=== PATIENT | female | born 1950 | race Two or more races ===

== ENCOUNTER 2022-11-22 11:45 | Inpatient (IN) | payer OTHER ==
[~2022-11-22] VITALS: Ht 160 cm; Wt 54.4 kg
[2022-11-22] MEDS ORDERED: MILLIPRED5 MG PO (14:56)
[2022-11-22] MEDS ORDERED: CYMBALTA20 MG PO (14:57)
[2022-11-22] MEDS ORDERED: HYDROCHLOROTHIA25 MG PO (14:57)
[2022-11-22] MEDS ORDERED: PERCOCET 10-321 EACH PO (14:57)
[2022-11-22] MEDS ORDERED: MULTIPLE VITAM1 EAC2 PO (14:58)
[2022-11-22] MEDS ORDERED: XANAX0.25 MG PO (14:58)
[2022-11-23] MEDS ORDERED: LISINOPRIL20 MG (13:07)
[2022-11-23] MEDS ORDERED: OXYC1TAB9 (13:07)
[2022-11-23] MEDS ORDERED: PROLIA60 MG/1 ML (13:07)
[2022-11-23] MEDS ORDERED: DULOXETINE HCL30 MG (13:07)
[2022-11-23] MEDS ORDERED: METOPROLOL SUCC50 MG (13:07)
[2022-11-23] MEDS ORDERED: ALENDRONATE SOD70 MG (13:07)
[2022-11-23] MEDS ORDERED: ALPRAZOLAM2 MG (13:07)
[2022-11-23] MEDS ORDERED: PREDNISONE2.5 MG (13:07)
[2022-11-24] MEDS ORDERED: ELIQUIS2.5 MG PO (08:31)
[2022-11-24] MEDS ORDERED: DUI500 PO (08:31)
[2022-11-24] MEDS ORDERED: PERCOCET 5-3251 EACH PO (08:31)
== END 2022-11-25 19:52 | DRG 470 ==
LOC: O/R 11-23 05:49 → SURH 11-23 05:49 → SURG 11-23 11:45 → SURH 11-23 17:30
PROVIDERS: ADMIT Orthopaedic Surgery; ATTEND Orthopaedic Surgery
PROC: 0SRC0J9 Replacement of Right Knee Joint with Synthetic Substitute, Cemented, Open Approach (ICD-10-PCS; principal; 2022-11-23 15:15)
DX: M17.11 Unilateral primary osteoarthritis, right knee (principal); D62 Acute posthemorrhagic anemia; I10 Essential (primary) hypertension

== ENCOUNTER 2022-12-10 05:04 | Emergency (ER) | payer OTHER ==
[~2022-12-10] VITALS: Ht 160 cm; Wt 47.2 kg
[~2022-12-10 05:04] MED LIST: ALENDRONATE SOD70 MG; ALPRAZOLAM2 MG; CYMBALTA20 MG PO; DUI500 PO; DULOXETINE HCL30 MG; ELIQUIS2.5 MG PO; HYDROCHLOROTHIA25 MG PO; LISINOPRIL20 MG; METOPROLOL SUCC50 MG; MILLIPRED5 MG PO; MULTIPLE VITAM1 EAC2 PO; OXYC1TAB9; PERCOCET 10-321 EACH PO; PERCOCET 5-3251 EACH PO; PREDNISONE2.5 MG; PROLIA60 MG/1 ML; XANAX0.25 MG PO
[2022-12-10] MEDS ORDERED: PERCOCET 5-3251 EACH PO (07:16)
== END 2022-12-10 07:50 ==
LOC: ER 05:04
DX: M51.36 Other intervertebral disc degeneration, lumbar region (principal); M25.561 Pain in right knee; I10 Essential (primary) hypertension; Z96.651 Presence of right artificial knee joint
CPT/HCPCS: 72100; 73560; 96372; 99284; J3490

== ENCOUNTER 2024-05-31 08:45 | Inpatient (IN) | payer OTHER ==
[~2024-05-31] VITALS: Ht 152.4 cm; Wt 52.2 kg
[2024-05-31 09:22] VITALS: BP 161/89
[2024-05-31 09:28] VITALS: BP 140/81
[2024-05-31 13:34] LABS: RH POSITIVE
[2024-06-05] MEDS ORDERED: TRANEXAMIC ACID 100MG/1ML (1000MG) AMPUL IV ONE ×2 (14:45)
[2024-06-05] MEDS ORDERED: CEFAZOLIN SODIUM 1,000 MG VIAL IV ONE (14:45)
[2024-06-05] MEDS ORDERED: POVIDONE-IODINE 118 ML BOTT TOP ONE (15:00)
[2024-06-05] MEDS ORDERED: VANCOMYCIN HCL 1,000 MG VIAL IR ONE (15:00)
[2024-06-05] MEDS ORDERED: MORPHINE SULFATE 4 MG/ML CARTRIDGE IV ONE (16:00)
[2024-06-05] MEDS ORDERED: LIDOCAINE HCL 1%/EPINEPHRINE 20ML VIAL IJ ONE (16:00)
[2024-06-05] MEDS ORDERED: BUPIVACAINE HCL 30 ML VIAL IJ ONE (16:00)
[2024-06-05] MEDS ORDERED: OxyCODONE HCL 5 MG TABLET (ROXICODONE) PO PRN (16:45)
[2024-06-05] MEDS ORDERED: ONDANSETRON HCL 2 MG/ML VIAL IV PRN (16:45)
[2024-06-05] MEDS ORDERED: MORPHINE SULFATE 4 MG/ML CARTRIDGE IV PRN (16:45)
[2024-06-05] MEDS ORDERED: SODIUM CHLORIDE 0.45 % 1,000 ML IV SCH (16:45)
[2024-06-05] MEDS ORDERED: CEFAZOLIN SODIUM 1,000 MG VIAL IV SCH (17:00)
[2024-06-05] MEDS ORDERED: GABAPENTIN 300 MG CAPSULE PO SCH (17:00)
[2024-06-05] MEDS ORDERED: ENALAPRILAT DIHYDRATE 1.25 MG/ML VIAL IV ONE ×3 (17:15→18:00)
[2024-06-05] MEDS ORDERED: SUGAMMADEX SODIUM 200 MG/2 ML VIAL IV ONE (17:15)
[2024-06-05] MEDS ORDERED: ACETAMINOPHEN 500 MG GEL..CAP PO SCH (18:00)
[2024-06-05 21:07] VITALS: BP 161/89; O2SAT 96
[2024-06-06 00:10] VITALS: BP 138/83; O2SAT 98
[2024-06-06] MEDS ORDERED: DUI500 PO (07:59)
[2024-06-06] MEDS ORDERED: PERCOCET 5-3251 EACH PO (07:59)
[2024-06-06 08:00] VITALS: BP 159/88; O2SAT 98
[2024-06-06 08:22] LABS: HEMATOCRIT 35.6 % (36.0-45.00); HEMOGLOBIN 12.2 g/dL (12.0-15.00); MEAN CELL VOLUME 95.2 fL (80.00-100.00); MEAN CORPUSCULAR HEMOGLOBIN 32.6 pg (27.00-32.0); MEAN CORPUSCULAR HGB CONC 34.2 g/dl (32.0-36.0); RED BLOOD COUNT 3.74 M/uL (4.00-6.00); RED CELL DISTRIBUTION WIDTH 12.9 % (11.5-14.5)
[2024-06-06 08:28] LABS: PLATELET COUNT 130 K/uL (150-450)
[2024-06-06] MEDS ORDERED: SENNOSIDES 1 TAB TABLET PO SCH (09:00)
== END 2024-06-06 09:42 | disposition home or self-care (01) | DRG 483 ==
LOC: O/R 06-05 08:36 → SURH 06-05 08:45
PROVIDERS: ADMIT Orthopaedic Surgery; ATTEND Orthopaedic Surgery
PROC: 0LS30ZZ Reposition Right Upper Arm Tendon, Open Approach (ICD-10-PCS; 2024-06-05)
PROC: 0PUC0JZ Supplement Right Humeral Head with Synthetic Substitute, Open Approach (ICD-10-PCS; 2024-06-05)
PROC: 0RRJ00Z Replacement of Right Shoulder Joint with Reverse Ball and Socket Synthetic Substitute, Open Approach (ICD-10-PCS; principal; 2024-06-05 21:45)
DX: M19.011 Primary osteoarthritis, right shoulder (principal); D62 Acute posthemorrhagic anemia; M75.121 Complete rotator cuff tear or rupture of right shoulder, not specified as traumatic; M17.11 Unilateral primary osteoarthritis, right knee; I10 Essential (primary) hypertension; M54.9 Dorsalgia, unspecified; M25.561 Pain in right knee; Z96.651 Presence of right artificial knee joint